=== PATIENT | female | born 1975 | race Caucasian/White ===

== ENCOUNTER 2020-02-16 11:51 | Emergency (ER) | payer OTHER ==
[~2020-02-16] VITALS: Ht 170.2 cm; Wt 80.7 kg
[2020-02-16 13:12] LABS: ABSOLUTE NEUTROPHILS 4.2 thou/uL (1.4-8.2); BASOPHILS 1.3 % (0.0-2.0); EOSINOPHILS 1.2 % (0.0-3.0); HEMOGLOBIN 13.8 gm/dL (12.0-15.0); LYMPHOCYTES 32.2 % (24.0-44.0); MCH 29.8 pg (26.0-34.0); MCHC 32.8 g/dL (28.0-37.0); MCV 90.8 fL (80.0-100.0); MONOCYTES 7.4 % (1.0-8.0); POLYS 57.9 % (36.0-66.0); RBC 4.62 mil/uL (4.20-5.00); RDW 14.8 % (10.5-14.5); WBC 7.3 thou/uL (4.0-11.0)
[2020-02-16 13:21] LABS: ANION GAP 10 mmol/L (7-16); BUN 10 mg/dL (7-18); CHLORIDE 105 mmol/L (98-107); CO2 25 mmol/L (21-32); GLUCOSE 91 mg/dL (74-106); SODIUM 140 mmol/L (136-145)
[2020-02-16 13:29] LABS: TROPONIN-I <0.06 ng/mL (<0.06)
[2020-02-16 13:53] LABS: PLATELET COUNT 218 thou/uL (150-400); PLATELET ESTIMATE NORMAL
[2020-02-16 15:51] VITALS: BP 124/77
--- NOTE | 2020-02-17 08:24 | EKG ---
[facility] [place] [address] ELECTROCARDIOGRAM REPORT Name: MAHI OLIVER Room #: DEP [facility]#: [id number] Admission: 02/16/20 Attend Phys: Discharge: 02/16/20 Date of : 77 Report #: [id number] THIS REPORT FOR: cc: DRE PIMENTEL ([facility]) Physician not on staff Bora Davila MD [facility] ~ THIS REPORT FOR: //name// [facility] ED Test Date: 2020-02-16 Test Time: 12:13:05 Pat Name: MAHI OLIVER Department: Room: Gender: F [employer] Machine Operator: [facility] : 1975 Requested By: Toro Kurtz Order Number: [id number] MD: Bora Davila Measurements Intervals [place] Rate: 103 P: 51 HI: 141 QRS: 49 QRSD: 62 T: 32 QT: 401 QTc: 525 Interpretive Statements Sinus tachycardia Nonspecific T wave abnormality Prolonged QT interval No previous ECG available for comparison Electronically Signed On 02-17-2020 8:24:28 CDT by Bora Davila [email or web address] <ELECTRONICALLY SIGNED> By: Bora Davila MD, [facility] [id number] 12 12 Bora Davila MD, [facility] /EPI
== END 2020-02-16 15:51 | disposition home or self-care (01) ==
LOC: ER 11:51
PROVIDERS: Emergency Medicine
DX: R51 Headache (principal); M79.622 Pain in left upper arm; R23.2 Flushing; H53.8 Other visual disturbances